=== PATIENT | male | born 1995 | race Caucasian/White ===

== ENCOUNTER 2019-06-09 18:50 | Observation (INO) | payer SELFPAY ==
[2019-06-09] MEDS: Sodium Chloride 0.9% 10 ML Syringe FLUSH PRN ×2 (19:00→21:00)
[2019-06-09] MEDS ORDERED: Sodium Chloride 0.9% 1,000 ML IV ONE (19:03)
[2019-06-09] MEDS ORDERED: Ondansetron 4 MG/2 ML SDV IVPUSH ONE ×2 (19:03→21:15)
--- NOTE | 2019-06-09 19:26 | EDM.PDOC ---
ED HPI GENERAL MEDICAL PROBLEM - General Chief Complaint: Drug or Alcohol Abuse Stated Complaint: VOMITTING Time Seen by Provider: 06/09/19 19:01 Source of Information: Reports: Patient, Family (Sister) History Limitations: Reports: No Limitations - History of Present Illness INITIAL COMMENTS - FREE TEXT/NARRATIVE: Patient is a 24-year-old gentleman who presents to the emergency department this evening with his sister for complaint of drug abuse and vomiting. Sister explained to me that the patient was staying with the father in [place] and she found him intoxicated and not cared for. Sister also noticed that the patient had a large wound on his right lower extremity. She became concerned and decided to bring the patient to [facility] for evaluation. Sister states that she contacted [facility] and they have an appointment there on Monday for evaluation. Patient admits to marijuana, cocaine, and heroin use. Patient also has a history of epilepsy and is currently on Depakote. Patient denies chest pain, shortness of breath, headache, fever, abdominal pain, bowel changes, blood in stool or vomitus. Onset: Unknown/Unsure Duration: Chronic Severity: Moderate Improves with: Reports: None Worsens with: Reports: None Associated Symptoms: Reports: Nausea/Vomiting. Denies: Chest Pain, Fever/Chills , Shortness of Breath - Related Data Allergies Allergy/AdvReac Type Severity Reaction Status Date / Time No Known Drug Allergies Allergy Cannot Verified 06/09/19 19:07 Remember Home Meds: Home Meds Divalproex Sodium [Depakote] 250 mg PO DAILY 06/09/19 [History] Divalproex Sodium [Depakote] 500 mg PO BEDTIME 06/09/19 [History] ED ROS GENERAL - Review of Systems Review Of Systems: Comprehensive ROS is negative, except as noted in HPI. Constitutional: Reports: No Symptoms HEENT: Reports: No Symptoms Respiratory: Reports: No Symptoms Cardiovascular: Reports: No Symptoms Endocrine: Reports: No Symptoms GI/Abdominal: Reports: Nausea, Vomiting. Denies: Abdominal Pain : Reports: No Symptoms Musculoskeletal: Reports: No Symptoms Skin: Reports: No Symptoms Neurological: Reports: No Symptoms Psychiatric: Denies: Homicidal Ideation, Suicidal Ideation Hematologic/Lymphatic: Reports: No Symptoms Immunologic: Reports: No Symptoms ED EXAM, GENERAL - Physical Exam Exam: See Below Exam Limited By: No Limitations General Appearance: Alert, WD/WN, No Apparent Distress Eye Exam: Bilateral Eye: Normal Inspection Nose: Normal Inspection, Normal Mucosa, No Blood Throat/Mouth: Normal Inspection, Normal Oropharynx, No Airway Compromise Head: Atraumatic, Normocephalic Neck: Normal Inspection, Supple, Non-Tender, Full Range of Motion Respiratory/Chest: No Respiratory Distress, Lungs Clear, Normal Breath Sounds, No Accessory Muscle Use, Chest Non-Tender Cardiovascular: No Murmur, Tachycardia GI/Abdominal: Normal Bowel Sounds, Soft, Non-Tender, No Organomegaly, No Distention, No Abnormal Bruit, No Mass, Pelvis Stable Back Exam: Normal Inspection, Full Range of Motion. No: CVA Tenderness (L), CVA Tenderness (R) Extremities: Normal Range of Motion, Non-Tender, No Pedal Edema, Redness, Other (There is a 9" linear x 1" wide laceration to midline right tib-fib. There is half centimeter border, erythema around wound and no proximal lymphadenopathy streaking,) Neurological: Alert, Oriented, CN II-XII Intact, No Motor/Sensory Deficits Psychiatric: Normal Affect, Normal Mood Skin Exam: Warm, Dry, Intact, Normal Color, No Rash Lymphatic: No Adenopathy Course - Vital Signs Last Recorded V/S: Last Vital Signs Temp 97.9 F 06/09/19 19:00 Pulse 88 06/09/19 19:53 Resp 28 H 06/09/19 19:53 BP 139/95 H 06/09/19 19:53 Pulse Ox 97 06/09/19 19:53 - Orders/Labs/Meds Orders: Active Orders 24 hr Category Date Time Status Patient Status [ADT] Routine ADT 06/09/19 21:12 Ordered Oxygen Therapy [RC] PRN Care 06/09/19 21:12 Ordered Peripheral IV Care [RC] . DIRECTED Care 06/09/19 19:03 Active Up to Chair [RC] ASDIRECTED Care 06/09/19 21:12 Ordered VTE/DVT Education [RC] PER UNIT ROUTINE Care 06/09/19 21:12 Ordered Vaccines to be Administered [RC] PER UNIT ROUTINE Care 06/09/19 20:47 Ordered Vital Signs [RC] Q4H Care 06/09/19 21:12 Ordered Regular Diet [DIET] Diet 06/09/19 Breakfast Ordered BASIC METABOLIC PANEL,BMP [CHEM] Routine Lab 06/10/19 07:00 Ordered CBC WITH AUTO DIFF [HEME] Routine Lab 06/10/19 07:00 Ordered CULTURE BLOOD [BC] Stat Lab 06/09/19 19:46 Ordered CULTURE BLOOD [BC] Stat Lab 06/09/19 19:46 Ordered CULTURE WOUND [RM] Stat Lab 06/09/19 19:49 Ordered LACTIC ACID [CHEM] Routine Lab 06/10/19 07:00 Ordered VALPROIC ACID [REF] Stat Lab 06/09/19 19:27 Ordered Acetaminophen [Tylenol] Med 06/09/19 21:12 Ordered 650 mg PO Q4H PRN Ondansetron [Zofran ODT] Med 06/09/19 21:12 Ordered 4 mg PO Q4H PRN Potassium Bicarbonate [Klor-Con EF] Med 06/09/19 21:15 Ordered 25 meq PO DAILY Sodium Chloride 0.9% @ 125 MLS/HR (1000ml) Med 06/09/19 21:15 Ordered Sodium Chloride 0.9% [Normal Saline] 1,000 ml IV ASDIRECTED Sodium Chloride 0.9% [Saline Flush] Med 06/09/19 19:03 Ordered 10 ml FLUSH Q8HR PRN Blood Culture x2 Reflex Set [OM.PC] Stat Oth 06/09/19 19:46 Ordered Peripheral IV Insertion Adult [OM.PC] Routine Oth 06/09/19 19:03 Ordered Resuscitation Status Routine Resus Stat 06/09/19 21:12 Ordered Medication Orders Acetaminophen (Tylenol) 650 mg PO Q4H PRN PRN Reason: Pain (Mild 1-3)/fever Sodium Chloride (Normal Saline) 1,000 mls @ 125 mls/hr IV ASDIRECTED CONNER Ondansetron HCl (Zofran Odt) 4 mg PO Q4H PRN PRN Reason: nausea, able to take PO Potassium Bicarbonate (Klor-Con Ef) 25 meq PO DAILY CONNER Sodium Chloride (Saline Flush) 10 ml FLUSH Q8HR PRN PRN Reason: keep vein open Labs: Laboratory Tests 06/09/19 06/09/19 06/09/19 Range/Units 19:00 19:00 19:03 WBC 23.14 H (5.00-10.00) 10^3/uL RBC 6.24 H (4.50-6.00) 10^6/uL Hgb 18.7 H (13.0-17.0) g/dL Hct 52.5 H (40.0-52.0) % MCV 84.1 (82.0-92.0) fL MCH 30.0 (27.0-31.0) pg MCHC 35.6 (32.0-36.0) g/dL RDW 14.5 (11.5-14.5) % Plt Count 406 H (150-400) 10^3/uL MPV 10.1 (7.4-10.4) fL Immature Gran % (Auto) 0.3 (0.0-5.0) % Neut % (Auto) 71.0 H (50.0-70.0) % Lymph % (Auto) 13.7 L (20.0-40.0) % [place] % (Auto) 14.9 H (2.0-8.0) % Eos % (Auto) 0.0 L (1.0-3.0) % Baso % (Auto) 0.1 (0.0-1.0) % Immature Gran # (Auto) 0.06 (0.00-0.50) 10^3/uL Neut # (Auto) 16.43 H (2.50-7.00) 10^3/uL Lymph # (Auto) 3.17 (1.00-4.00) 10^3/uL [place] # (Auto) 3.45 H (0.10-0.80) 10^3/uL Eos # (Auto) 0.01 L (0.10-0.30) 10^3/uL Baso # (Auto) 0.02 (0.00-0.10) 10^3/uL Sodium 142 (136-145) mmol/L Potassium 3.1 L (3.3-5.3) mmol/L Chloride 94 L (98-115) mmol/L Carbon Dioxide 30.3 (21.0-32.0) mmol/L Anion Gap 20.8 H (5-15) mmol/L BUN 50 H (6-25) mg/dL Creatinine 1.27 H (0.51-1.17) mg/dL Est Cr Clr Drug Dosing 85.57 mL/min Estimated GFR (MDRD) > 60 mL/min Glucose 157 H (75 - 99) mg/dL Lactic Acid (0.4-2.0) mmol/L Calcium 9.9 (8.7-10.3) mg/dL Total Bilirubin 0.6 (0.2-1.0) mg/dL AST 8 L (15-37) U/L ALT 16 (12-78) U/L Alkaline Phosphatase 68 (46-116) IU/L Total Protein 9.4 H (6.4-8.2) g/dL Albumin 4.72 (3.00-4.80) g/dL Specimen Type Urine Color (YELLOW) Urine Appearance (CLEAR) Urine pH (5.0-9.0) Ur Specific [place] (1.005-1.030) Urine Protein (NEGATIVE) mg/dL Urine Glucose (UA) (NEGATIVE) mg/dL Urine Ketones (NEGATIVE) mg/dL Urine Occult Blood (NEGATIVE) Urine Nitrite (NEGATIVE) Urine Bilirubin (NEGATIVE) Urine Urobilinogen (0.2-1.0) E.U./dL Ur Leukocyte Esterase (NEGATIVE) U Hyaline Cast (Auto) Urine RBC (0-5) /HPF Urine WBC (0-5) /HPF Ur Epithelial Cells /LPF Amorphous Sediment (0/HPF) /HPF Urine Bacteria (NONE TO FEW) /HPF Urine Mucus (NEGATIVE) /LPF Urine Opiates Screen Positive H (NEGATIVE) Ur Oxycodone Screen Negative (NEGATIVE) Urine Methadone Screen Negative (NEGATIVE) Ur Propoxyphene Screen Negative (NEGATIVE) Ur Barbiturates Screen Negative (NEGATIVE) Ur Tricyclics Screen Positive H (NEGATIVE) Ur Phencyclidine Scrn Negative (NEGATIVE) Ur Amphetamine Screen Negative (NEGATIVE) U Methamphetamines Scrn Positive H (NEGATIVE) U Benzodiazepines Scrn Negative (NEGATIVE) U Cocaine Metab Screen Negative (NEGATIVE) U Marijuana (THC) Screen Positive H (NEGATIVE) Ethyl Alcohol < 3 (NONE DETECTED) mg/dL 06/09/19 06/09/19 Range/Units 19:10 20:15 WBC (5.00-10.00) 10^3/uL RBC (4.50-6.00) 10^6/uL Hgb (13.0-17.0) g/dL Hct (40.0-52.0) % MCV (82.0-92.0) fL MCH (27.0-31.0) pg MCHC (32.0-36.0) g/dL RDW (11.5-14.5) % Plt Count (150-400) 10^3/uL MPV (7.4-10.4) fL Immature Gran % (Auto) (0.0-5.0) % Neut % (Auto) (50.0-70.0) % Lymph % (Auto) (20.0-40.0) % [place] % (Auto) (2.0-8.0) % Eos % (Auto) (1.0-3.0) % Baso % (Auto) (0.0-1.0) % Immature Gran # (Auto) (0.00-0.50) 10^3/uL Neut # (Auto) (2.50-7.00) 10^3/uL Lymph # (Auto) (1.00-4.00) 10^3/uL [place] # (Auto) (0.10-0.80) 10^3/uL Eos # (Auto) (0.10-0.30) 10^3/uL Baso # (Auto) (0.00-0.10) 10^3/uL Sodium (136-145) mmol/L Potassium (3.3-5.3) mmol/L Chloride (98-115) mmol/L Carbon Dioxide (21.0-32.0) mmol/L Anion Gap (5-15) mmol/L BUN (6-25) mg/dL Creatinine (0.51-1.17) mg/dL Est Cr Clr Drug Dosing mL/min Estimated GFR (MDRD) mL/min Glucose (75 - 99) mg/dL Lactic Acid 1.7 (0.4-2.0) mmol/L Calcium (8.7-10.3) mg/dL Total Bilirubin (0.2-1.0) mg/dL AST (15-37) U/L ALT (12-78) U/L Alkaline Phosphatase (46-116) IU/L Total Protein (6.4-8.2) g/dL Albumin (3.00-4.80) g/dL Specimen Type . Urine Color Yellow (YELLOW) Urine Appearance Slightly cloudy H (CLEAR) Urine pH 5.5 (5.0-9.0) Ur Specific [place] >= 1.030 (1.005-1.030) Urine Protein >=300 H (NEGATIVE) mg/dL Urine Glucose (UA) Negative (NEGATIVE) mg/dL Urine Ketones Negative (NEGATIVE) mg/dL Urine Occult Blood Trace-lysed H (NEGATIVE) Urine Nitrite Negative (NEGATIVE) Urine Bilirubin Small H (NEGATIVE) Urine Urobilinogen 0.2 (0.2-1.0) E.U./dL Ur Leukocyte Esterase Negative (NEGATIVE) U Hyaline Cast (Auto) Few Urine RBC 0-5 (0-5) /HPF Urine WBC 10-20 H (0-5) /HPF Ur Epithelial Cells Occasional /LPF Amorphous Sediment Few (0/HPF) /HPF Urine Bacteria Occasional (NONE TO FEW) /HPF Urine Mucus Moderate H (NEGATIVE) /LPF Urine Opiates Screen (NEGATIVE) Ur Oxycodone Screen (NEGATIVE) Urine Methadone Screen (NEGATIVE) Ur Propoxyphene Screen (NEGATIVE) Ur Barbiturates Screen (NEGATIVE) Ur Tricyclics Screen (NEGATIVE) Ur Phencyclidine Scrn (NEGATIVE) Ur Amphetamine Screen (NEGATIVE) U Methamphetamines Scrn (NEGATIVE) U Benzodiazepines Scrn (NEGATIVE) U Cocaine Metab Screen (NEGATIVE) U Marijuana (THC) Screen (NEGATIVE) Ethyl Alcohol (NONE DETECTED) mg/dL Meds: Medications Generic Name Dose Route Start Last Admin Trade Name Freq PRN Reason Stop Dose Admin Acetaminophen 650 mg 06/09/19 21:12 Tylenol PO Q4H PRN Pain (Mild 1-3)/fever Sodium Chloride 1,000 mls @ 125 mls/hr 06/09/19 21:15 Normal Saline IV ASDIRECTED CONNER Ondansetron HCl 4 mg 06/09/19 21:12 Zofran Odt PO Q4H PRN nausea, able to take PO Potassium Bicarbonate 25 meq 06/09/19 21:15 Klor-Con Ef PO DAILY CONNER Sodium Chloride 10 ml 06/09/19 19:03 Saline Flush FLUSH Q8HR PRN keep vein open Discontinued Medications Generic Name Dose Route Start Last Admin Trade Name Freq PRN Reason Stop Dose Admin Ceftriaxone Sodium Confirm 06/09/19 19:49 06/09/19 21:09 Rocephin Administered 06/09/19 19:50 1 gm Dose Administration 1 gm .ROUTE .STK-MED ONE Diphtheria/Tetanus/Acell Pertussis 0.5 ml 06/09/19 20:47 06/09/19 20:53 Adacel IM 06/09/19 20:48 0.5 ml .ONCE ONE Administration Sodium Chloride 1,000 mls @ 999 mls/hr 06/09/19 19:03 06/09/19 19:16 Normal Saline IV 06/09/19 20:03 999 mls/hr .BOLUS ONE Administration Ondansetron HCl 4 mg 06/09/19 19:03 06/09/19 19:17 Zofran IVPUSH 06/09/19 19:04 4 mg ONETIME ONE Administration Ondansetron HCl 4 mg 06/09/19 21:15 Zofran IVPUSH 06/09/19 21:16 ONETIME ONE - Re-Assessments/Exams Free Text/Narrative Re-Assessment/Exam: 06/09/19 21:06 Patient afebrile, vital signs stable, patient resting comfortably, sister at bedside. Discussed case with Dr. Ochoa. Patient will be admitted and followed. Departure - Departure Time of Disposition: 21:09 Disposition: Refer to Observation Condition: Fair Clinical Impression: Drug dependence, Acute renal insufficiency Cellulitis Qualifiers: Site of cellulitis: extremity Site of cellulitis of extremity: lower extremity Laterality: right Qualified Code(s): L03.115 - Cellulitis of right lower limb Leukocytosis Qualifiers: Leukocytosis type: unspecified Qualified Code(s): D72.829 - Elevated white blood cell count, unspecified - Discharge Information Referrals: Ronit Gray MD [Primary Care Provider] - Sepsis Event Note - Focused Exam Vital Signs: Vital Signs Temp Pulse Resp BP BP Pulse Ox 06/09/19 19:53 88 28 H 139/95 H 97 06/09/19 19:25 106 H 30 H 133/88 06/09/19 19:05 131 H 38 H 139/89 06/09/19 19:00 97.9 F 148 H 20 144/113 H 98 Date Exam was Performed: 06/09/19 Time Exam was Performed: 21:18 - My Orders Last 24 Hours: My Active Orders 06/09/19 19:03 Peripheral IV Care [RC] . DIRECTED Sodium Chloride 0.9% [Saline Flush] 10 ml FLUSH Q8HR PRN Peripheral IV Insertion Adult [OM.PC] Routine 06/09/19 19:27 VALPROIC ACID [REF] Stat 06/09/19 19:46 CULTURE BLOOD [BC] Stat CULTURE BLOOD [BC] Stat Blood Culture x2 Reflex Set [OM.PC] Stat 06/09/19 19:49 CULTURE WOUND [RM] Stat 06/09/19 20:47 Vaccines to be Administered [RC] PER UNIT ROUTINE 06/09/19 21:12 Patient Status [ADT] Routine Oxygen Therapy [RC] PRN Up to Chair [RC] ASDIRECTED VTE/DVT Education [RC] PER UNIT ROUTINE Vital Signs [RC] Q4H Acetaminophen [Tylenol] 650 mg PO Q4H PRN Ondansetron [Zofran ODT] 4 mg PO Q4H PRN Resuscitation Status Routine 06/09/19 21:15 Potassium Bicarbonate [Klor-Con EF] 25 meq PO DAILY Sodium Chloride 0.9% @ 125 MLS/HR (1000ml) Sodium Chloride 0.9% [Normal Saline] 1,000 ml IV ASDIRECTED 06/09/19 Breakfast Regular Diet [DIET] 06/10/19 07:00 BASIC METABOLIC PANEL,BMP [CHEM] Routine CBC WITH AUTO DIFF [HEME] Routine LACTIC ACID [CHEM] Routine - Assessment/Plan Admission H&P: Please use this note as an admission H&P Last 24 Hours: My Active Orders 06/09/19 19:03 Peripheral IV Care [RC] . DIRECTED Sodium Chloride 0.9% [Saline Flush] 10 ml FLUSH Q8HR PRN Peripheral IV Insertion Adult [OM.PC] Routine 06/09/19 19:27 VALPROIC ACID [REF] Stat 06/09/19 19:46 CULTURE BLOOD [BC] Stat CULTURE BLOOD [BC] Stat Blood Culture x2 Reflex Set [OM.PC] Stat 06/09/19 19:49 CULTURE WOUND [RM] Stat 06/09/19 20:47 Vaccines to be Administered [RC] PER UNIT ROUTINE 06/09/19 21:12 Patient Status [ADT] Routine Oxygen Therapy [RC] PRN Up to Chair [RC] ASDIRECTED VTE/DVT Education [RC] PER UNIT ROUTINE Vital Signs [RC] Q4H Acetaminophen [Tylenol] 650 mg PO Q4H PRN Ondansetron [Zofran ODT] 4 mg PO Q4H PRN Resuscitation Status Routine 06/09/19 21:15 Potassium Bicarbonate [Klor-Con EF] 25 meq PO DAILY Sodium Chloride 0.9% @ 125 MLS/HR (1000ml) Sodium Chloride 0.9% [Normal Saline] 1,000 ml IV ASDIRECTED 06/09/19 Breakfast Regular Diet [DIET] 06/10/19 07:00 BASIC METABOLIC PANEL,BMP [CHEM] Routine CBC WITH AUTO DIFF [HEME] Routine LACTIC ACID [CHEM] Routine Assessment:: Leukocytosis Plan: Admit for observation
--- NOTE | 2019-06-09 19:35 | CR ---
[id number] RAD/RAD Tibia Fibula Right EXAM: RAD Tibia Fibula Right INDICATION: TRAUMA COMPARISON: None. DISCUSSION: No fracture, dislocation or other osseous abnormality. IMPRESSION: 1. Negative exam. Randal Hudson MD 06/09/19 1934 Thank you for allowing us to participate in the care of your patient.
[2019-06-09 19:47] LABS: BARBITURATE SCREEN,URINE NEGATIVE (NEGATIVE); BENZODIAZEPINES SCREEN,URINE NEGATIVE (NEGATIVE)
[2019-06-09 19:48] LABS: TCA SCREEN,URINE POSITIVE (NEGATIVE); THC SCREEN,URINE 50 NG/ML POSITIVE (NEGATIVE)
[2019-06-09] MEDS ORDERED: cefTRIAXone 1 GM Vial IVPUSH ONE (19:50)
[2019-06-09 19:53] LABS: ANION GAP 20.8 mmol/L (5-15); CHLORIDE,CL 94 mmol/L (98-115); SODIUM,NA 142 mmol/L (136-145)
[2019-06-09] MEDS ORDERED: Diphtheria,Pertussis(Acell),Tetanus Vaccine 0.5 ML SDV IM ONE (20:47)
[2019-06-09] MEDS ORDERED: Divalproex Sodium Delayed-Release 250 MG Tab.CR PO SCH (21:00)
[2019-06-09] MEDS ORDERED: DIVALPROEX 500 MG PO SCH (21:00)
[2019-06-09] MEDS ORDERED: Patient's Own Medication 1 Each PO SCH ×2 (21:00)
[2019-06-09] MEDS: cefTRIAXone 1 GM Vial ONE (21:09)
[2019-06-09] MEDS ORDERED: Ondansetron 4 MG Tab.DIS PO PRN (21:12)
[2019-06-09] MEDS ORDERED: Sodium Chloride 0.9% 1,000 ML ONE (21:18)
[2019-06-09] MEDS: Sodium Chloride 0.9% 1,000 ML IV SCH (21:20)
[2019-06-09] MEDS: Acetaminophen 325 MG Tab PO PRN (22:37)
[2019-06-09] MEDS: Potassium Bicarbonate 25 MEQ Tab.EFF PO SCH (22:39)
[2019-06-10] MEDS: Acetaminophen 325 MG Tab PO PRN (05:17)
[2019-06-10] MEDS: Sodium Chloride 0.9% 1,000 ML IV SCH (05:19)
[2019-06-10 06:17] VITALS: BP 134/70; PULSE 67
[2019-06-10 06:35] LABS: ANION GAP 18.3 mmol/L (5-15); CHLORIDE,CL 101 mmol/L (98-115); SODIUM,NA 145 mmol/L (136-145)
[2019-06-10] MEDS: Potassium Bicarbonate 25 MEQ Tab.EFF PO SCH (08:28)
[2019-06-10] MEDS ORDERED: Divalproex Sodium Delayed-Release 250 MG Tab.CR PO SCH (09:00)
[2019-06-10] MEDS ORDERED: DIVALPROEX 500 MG PO SCH ×2 (09:00)
--- NOTE | 2019-06-10 10:18 | PCM.DCSUM1 ---
Discharge Summary - Hospital Course Free Text/Narrative:: Admission Date: 06/09/2019 Discharge Date: 06/10/2019 Admission Diagnoses: Opiate withdrawal Polysubstance abuse Leukocytosis Seizure Disorder Leg wound Acute renal insufficiency Discharge Diagnoses: Opiate withdrawal Polysubstance abuse Leukocytosis, improving Seizure Disorder Leg wound, will treat with Keflex, tetanus updated. Acute renal insufficiency, improving. Disposition: Home with family New meds at discharge: Ondansetron ODT 4 mg tabs Keflex 500 mg PO qid x 10 days Immodium OTC CODE STATUS: Full Code Merritt is a 24 yo male who was brought into the ER for hx of polysubstance abuse and acute withdrawal symptoms. His drug of choice is heroin and he prefers to smoke it rather than inject it. He has not used substances in the past 4 days, yesterday was the worst day of withdrawal symptoms with vomiting and diarrhea and shaking. He was noted to have a large RLE leg wound, laceration, that occurred approximately 4 days prior to admission when he states he had a seizure and he thinks that he lacerated the leg on a heater. He did not seek medical attention. The wound now will need to heal by secondary intention. His TDaP was updated in the ER on 06/08 and he was given rocephin. He was admitted largely due to an elevated WBC and mild renal insufficiency, WBC was 23 ,000, today is 16,000 with no left shift. His BUN/Cr were 50/1.27 and today are 32/0.99 after receiving IVF's. He states he is feeling better today and that yesterday was his worst day. He is ready to go home with his sister who resides here in [place]. He has an appointment on 06/10 for an assessment at [facility] for possible inpatient treatment. He has a hx of seizure disorder and takes Depakote 500 mg AM and 1,000 mg PM. He will need this renewed and this will be sent to the pharmacy. His sister, Tomeka, is present today. Merritt has gone through withdrawal before and knows what to expect symptomatically. Will try to control the symptoms as best as able with Zofran for nausea and immodium for the diarrhea. He states he feels better today and thinks he is through the worst of it. Keep intake appointment with [facility] tomorrow (06/10). Diagnosis: Stroke: No Modified Norman Scale: No Signif.Disability Despite Sympt.Able to Carry Out Usual Act./Duties Modified Norman Scale Score: 1 - Discharge Data Discharge Date: 06/10/19 Discharge Disposition: Home, Self-Care 01 Condition: Good - Referral to Home Health Primary Care Physician: Ronit Gray MD - Patient Instructions Diet: Regular Diet as Tolerated Wound/Incision Care: Keep Operative Site/Wound Site Clean and Dry Notify Provider of: Increased Pain, Swelling and Redness, Drainage - Discharge Plan *PRESCRIPTION DRUG MONITORING PROGRAM REVIEWED*: No *COPY OF PRESCRIPTION DRUG MONITORING REPORT IN PATIENT ANDRESSA: No Prescriptions/Med Rec: Divalproex Sodium 500 mg PO DAILY #30 tablet. Divalproex Sodium 1,000 mg PO BEDTIME #60 tablet. Ondansetron [Zofran ODT] 4 mg PO Q4H PRN #30 tab.dis PRN Reason: nausea, able to take PO Home Medications: Home Meds Divalproex Sodium 1,000 mg PO BEDTIME #60 tablet. 06/10/19 [Rx] Divalproex Sodium 500 mg PO DAILY #30 tablet. 06/10/19 [Rx] Ondansetron [Zofran ODT] 4 mg PO Q4H PRN #30 tab.dis 06/10/19 [Rx] Potassium Bicarbonate [Potassium Tablet Eff] 25 meq PO DAILY tab.eff 06/10/19 [ Rx] Referrals: Ronit Gray MD [Primary Care Provider] - - Discharge Summary/Plan Comment DC Time >30 min.: No - General Info Date of Service: 06/10/19 Admission Dx/Problem (Free Text: Opiate withdrawal. - Patient Data Vitals - Most Recent: Last Vital Signs Temp 98.8 F 06/10/19 06:17 Pulse 67 06/10/19 06:17 Resp 24 H 06/10/19 06:17 BP 134/70 06/10/19 06:17 Pulse Ox 98 06/10/19 06:17 Weight - Most Recent: 147 lb 11.2 oz I&O - Last 24 hours: Intake & Output 06/09/19 06/10/19 06/10/19 22:59 06:59 14:59 Intake Total 999 1220 Balance 999 1220 Lab Results - Last 24 hrs: Laboratory Results - last 24 hr 06/09/19 06/09/19 06/09/19 Range/Units 19:00 19:00 19:03 WBC 23.14 H (5.00-10.00) 10^3/uL RBC 6.24 H (4.50-6.00) 10^6/uL Hgb 18.7 H (13.0-17.0) g/dL Hct 52.5 H (40.0-52.0) % MCV 84.1 (82.0-92.0) fL MCH 30.0 (27.0-31.0) pg MCHC 35.6 (32.0-36.0) g/dL RDW 14.5 (11.5-14.5) % Plt Count 406 H (150-400) 10^3/uL MPV 10.1 (7.4-10.4) fL Immature Gran % (Auto) 0.3 (0.0-5.0) % Neut % (Auto) 71.0 H (50.0-70.0) % Lymph % (Auto) 13.7 L (20.0-40.0) % [place] % (Auto) 14.9 H (2.0-8.0) % Eos % (Auto) 0.0 L (1.0-3.0) % Baso % (Auto) 0.1 (0.0-1.0) % Immature Gran # (Auto) 0.06 (0.00-0.50) 10^3/uL Neut # (Auto) 16.43 H (2.50-7.00) 10^3/uL Lymph # (Auto) 3.17 (1.00-4.00) 10^3/uL [place] # (Auto) 3.45 H (0.10-0.80) 10^3/uL Eos # (Auto) 0.01 L (0.10-0.30) 10^3/uL Baso # (Auto) 0.02 (0.00-0.10) 10^3/uL Sodium 142 (136-145) mmol/L Potassium 3.1 L (3.3-5.3) mmol/L Chloride 94 L (98-115) mmol/L Carbon Dioxide 30.3 (21.0-32.0) mmol/L Anion Gap 20.8 H (5-15) mmol/L BUN 50 H (6-25) mg/dL Creatinine 1.27 H (0.51-1.17) mg/dL Est Cr Clr Drug Dosing 85.57 mL/min Estimated GFR (MDRD) > 60 mL/min Glucose 157 H (75 - 99) mg/dL Lactic Acid (0.4-2.0) mmol/L Calcium 9.9 (8.7-10.3) mg/dL Total Bilirubin 0.6 (0.2-1.0) mg/dL AST 8 L (15-37) U/L ALT 16 (12-78) U/L Alkaline Phosphatase 68 (46-116) IU/L Total Protein 9.4 H (6.4-8.2) g/dL Albumin 4.72 (3.00-4.80) g/dL Specimen Type Urine Color (YELLOW) Urine Appearance (CLEAR) Urine pH (5.0-9.0) Ur Specific [place] (1.005-1.030) Urine Protein (NEGATIVE) mg/dL Urine Glucose (UA) (NEGATIVE) mg/dL Urine Ketones (NEGATIVE) mg/dL Urine Occult Blood (NEGATIVE) Urine Nitrite (NEGATIVE) Urine Bilirubin (NEGATIVE) Urine Urobilinogen (0.2-1.0) E.U./dL Ur Leukocyte Esterase (NEGATIVE) U Hyaline Cast (Auto) Urine RBC (0-5) /HPF Urine WBC (0-5) /HPF Ur Epithelial Cells /LPF Amorphous Sediment (0/HPF) /HPF Urine Bacteria (NONE TO FEW) /HPF Urine Mucus (NEGATIVE) /LPF Urine Opiates Screen Positive H (NEGATIVE) Ur Oxycodone Screen Negative (NEGATIVE) Urine Methadone Screen Negative (NEGATIVE) Ur Propoxyphene Screen Negative (NEGATIVE) Ur Barbiturates Screen Negative (NEGATIVE) Ur Tricyclics Screen Positive H (NEGATIVE) Ur Phencyclidine Scrn Negative (NEGATIVE) Ur Amphetamine Screen Negative (NEGATIVE) U Methamphetamines Scrn Positive H (NEGATIVE) U Benzodiazepines Scrn Negative (NEGATIVE) U Cocaine Metab Screen Negative (NEGATIVE) U Marijuana (THC) Screen Positive H (NEGATIVE) Ethyl Alcohol < 3 (NONE DETECTED) mg/dL 06/09/19 06/09/19 06/10/19 Range/Units 19:10 20:15 05:00 WBC 16.45 H (5.00-10.00) 10^3/uL RBC 5.65 (4.50-6.00) 10^6/uL Hgb 16.6 D (13.0-17.0) g/dL Hct 48.4 (40.0-52.0) % MCV 85.7 (82.0-92.0) fL MCH 29.4 (27.0-31.0) pg MCHC 34.3 (32.0-36.0) g/dL RDW 14.4 (11.5-14.5) % Plt Count 280 D (150-400) 10^3/uL MPV 10.4 (7.4-10.4) fL Immature Gran % (Auto) 0.2 (0.0-5.0) % Neut % (Auto) 65.8 (50.0-70.0) % Lymph % (Auto) 20.5 (20.0-40.0) % [place] % (Auto) 13.3 H (2.0-8.0) % Eos % (Auto) 0.1 L (1.0-3.0) % Baso % (Auto) 0.1 (0.0-1.0) % Immature Gran # (Auto) 0.04 (0.00-0.50) 10^3/uL Neut # (Auto) 10.82 H (2.50-7.00) 10^3/uL Lymph # (Auto) 3.37 (1.00-4.00) 10^3/uL [place] # (Auto) 2.19 H (0.10-0.80) 10^3/uL Eos # (Auto) 0.01 L (0.10-0.30) 10^3/uL Baso # (Auto) 0.02 (0.00-0.10) 10^3/uL Sodium (136-145) mmol/L Potassium (3.3-5.3) mmol/L Chloride (98-115) mmol/L Carbon Dioxide (21.0-32.0) mmol/L Anion Gap (5-15) mmol/L BUN (6-25) mg/dL Creatinine (0.51-1.17) mg/dL Est Cr Clr Drug Dosing mL/min Estimated GFR (MDRD) mL/min Glucose (75 - 99) mg/dL Lactic Acid 1.7 (0.4-2.0) mmol/L Calcium (8.7-10.3) mg/dL Total Bilirubin (0.2-1.0) mg/dL AST (15-37) U/L ALT (12-78) U/L Alkaline Phosphatase (46-116) IU/L Total Protein (6.4-8.2) g/dL Albumin (3.00-4.80) g/dL Specimen Type . Urine Color Yellow (YELLOW) Urine Appearance Slightly cloudy H (CLEAR) Urine pH 5.5 (5.0-9.0) Ur Specific [place] >= 1.030 (1.005-1.030) Urine Protein >=300 H (NEGATIVE) mg/dL Urine Glucose (UA) Negative (NEGATIVE) mg/dL Urine Ketones Negative (NEGATIVE) mg/dL Urine Occult Blood Trace-lysed H (NEGATIVE) Urine Nitrite Negative (NEGATIVE) Urine Bilirubin Small H (NEGATIVE) Urine Urobilinogen 0.2 (0.2-1.0) E.U./dL Ur Leukocyte Esterase Negative (NEGATIVE) U Hyaline Cast (Auto) Few Urine RBC 0-5 (0-5) /HPF Urine WBC 10-20 H (0-5) /HPF Ur Epithelial Cells Occasional /LPF Amorphous Sediment Few (0/HPF) /HPF Urine Bacteria Occasional (NONE TO FEW) /HPF Urine Mucus Moderate H (NEGATIVE) /LPF Urine Opiates Screen (NEGATIVE) Ur Oxycodone Screen (NEGATIVE) Urine Methadone Screen (NEGATIVE) Ur Propoxyphene Screen (NEGATIVE) Ur Barbiturates Screen (NEGATIVE) Ur Tricyclics Screen (NEGATIVE) Ur Phencyclidine Scrn (NEGATIVE) Ur Amphetamine Screen (NEGATIVE) U Methamphetamines Scrn (NEGATIVE) U Benzodiazepines Scrn (NEGATIVE) U Cocaine Metab Screen (NEGATIVE) U Marijuana (THC) Screen (NEGATIVE) Ethyl Alcohol (NONE DETECTED) mg/dL 06/10/19 06/10/19 Range/Units 05:00 05:00 WBC (5.00-10.00) 10^3/uL RBC (4.50-6.00) 10^6/uL Hgb (13.0-17.0) g/dL Hct (40.0-52.0) % MCV (82.0-92.0) fL MCH (27.0-31.0) pg MCHC (32.0-36.0) g/dL RDW (11.5-14.5) % Plt Count (150-400) 10^3/uL MPV (7.4-10.4) fL Immature Gran % (Auto) (0.0-5.0) % Neut % (Auto) (50.0-70.0) % Lymph % (Auto) (20.0-40.0) % [place] % (Auto) (2.0-8.0) % Eos % (Auto) (1.0-3.0) % Baso % (Auto) (0.0-1.0) % Immature Gran # (Auto) (0.00-0.50) 10^3/uL Neut # (Auto) (2.50-7.00) 10^3/uL Lymph # (Auto) (1.00-4.00) 10^3/uL [place] # (Auto) (0.10-0.80) 10^3/uL Eos # (Auto) (0.10-0.30) 10^3/uL Baso # (Auto) (0.00-0.10) 10^3/uL Sodium 145 (136-145) mmol/L Potassium 3.2 L (3.3-5.3) mmol/L Chloride 101 (98-115) mmol/L Carbon Dioxide 28.9 (21.0-32.0) mmol/L Anion Gap 18.3 H (5-15) mmol/L BUN 32 H (6-25) mg/dL Creatinine 0.99 (0.51-1.17) mg/dL Est Cr Clr Drug Dosing 108.09 mL/min Estimated GFR (MDRD) > 60 mL/min Glucose 124 H (75 - 99) mg/dL Lactic Acid 1.9 (0.4-2.0) mmol/L Calcium 9.0 (8.7-10.3) mg/dL Total Bilirubin (0.2-1.0) mg/dL AST (15-37) U/L ALT (12-78) U/L Alkaline Phosphatase (46-116) IU/L Total Protein (6.4-8.2) g/dL Albumin (3.00-4.80) g/dL Specimen Type Urine Color (YELLOW) Urine Appearance (CLEAR) Urine pH (5.0-9.0) Ur Specific [place] (1.005-1.030) Urine Protein (NEGATIVE) mg/dL Urine Glucose (UA) (NEGATIVE) mg/dL Urine Ketones (NEGATIVE) mg/dL Urine Occult Blood (NEGATIVE) Urine Nitrite (NEGATIVE) Urine Bilirubin (NEGATIVE) Urine Urobilinogen (0.2-1.0) E.U./dL Ur Leukocyte Esterase (NEGATIVE) U Hyaline Cast (Auto) Urine RBC (0-5) /HPF Urine WBC (0-5) /HPF Ur Epithelial Cells /LPF Amorphous Sediment (0/HPF) /HPF Urine Bacteria (NONE TO FEW) /HPF Urine Mucus (NEGATIVE) /LPF Urine Opiates Screen (NEGATIVE) Ur Oxycodone Screen (NEGATIVE) Urine Methadone Screen (NEGATIVE) Ur Propoxyphene Screen (NEGATIVE) Ur Barbiturates Screen (NEGATIVE) Ur Tricyclics Screen (NEGATIVE) Ur Phencyclidine Scrn (NEGATIVE) Ur Amphetamine Screen (NEGATIVE) U Methamphetamines Scrn (NEGATIVE) U Benzodiazepines Scrn (NEGATIVE) U Cocaine Metab Screen (NEGATIVE) U Marijuana (THC) Screen (NEGATIVE) Ethyl Alcohol (NONE DETECTED) mg/dL Med Orders - Current: Current Medications Acetaminophen (Tylenol) 650 mg PO Q4H PRN PRN Reason: Pain (Mild 1-3)/fever Last Admin: 06/10/19 05:17 Dose: 650 mg Sodium Chloride (Normal Saline) 1,000 mls @ 125 mls/hr IV ASDIRECTED [facility] Last Admin: 06/10/19 05:19 Dose: 125 mls/hr Ondansetron HCl (Zofran Odt) 4 mg PO Q4H PRN PRN Reason: nausea, able to take PO Patient's Own Medication Divalproex [address] Tab 1 each PO 0900 [facility] Last Admin: 06/10/19 08:28 Dose: 1 each Patient's Own Medication Divalproex [address] Tab 2 each PO 2100 [facility] Last Admin: 06/09/19 22:46 Dose: 2 each Potassium Bicarbonate (Klor-Con Ef) 25 meq PO DAILY [facility] Last Admin: 06/10/19 08:28 Dose: 25 meq Sodium Chloride (Saline Flush) 10 ml FLUSH Q8HR PRN PRN Reason: keep vein open Last Admin: 06/09/19 21:00 Dose: 10 ml Discontinued Medications Ceftriaxone Sodium (Rocephin) Confirm Administered Dose 1 gm .ROUTE .STK-MED ONE Stop: 06/09/19 19:50 Last Admin: 06/09/19 21:09 Dose: 1 gm Diphtheria/Tetanus/Acell Pertussis (Adacel) 0.5 ml IM .ONCE ONE Stop: 06/09/19 20:48 Last Admin: 06/09/19 20:53 Dose: 0.5 ml Divalproex Sodium (Divalproex Sodium) 500 mg PO 0900 [facility] Sodium Chloride (Normal Saline) 1,000 mls @ 999 mls/hr IV .BOLUS ONE Stop: 06/09/19 20:03 Last Admin: 06/09/19 19:16 Dose: 999 mls/hr Sodium Chloride (Normal Saline) Confirm Administered Dose 1,000 mls @ as directed .ROUTE .STK-MED ONE Stop: 06/09/19 21:19 Last Admin: 06/09/19 23:40 Dose: Not Given Ondansetron HCl (Zofran) 4 mg IVPUSH ONETIME ONE Stop: 06/09/19 19:04 Last Admin: 06/09/19 19:17 Dose: 4 mg Ondansetron HCl (Zofran) 4 mg IVPUSH ONETIME ONE Stop: 06/09/19 21:16 Last Admin: 06/09/19 21:57 Dose: 4 mg Patient's Own Medication Divalproex [address] Tab 1 each PO 0900 [facility] - Exam General: Reports: Alert, Oriented, Cooperative, No Acute Distress Lungs: Reports: Clear to Auscultation, Normal Respiratory Effort Cardiovascular: Reports: Regular Rate, Regular Rhythm, No Murmurs GI/Abdominal Exam: Normal Bowel Sounds Skin: Reports: Other (He has a 9 cm linear incision on his right lower anterior leg. No drainage. There is some granulation tissue present. Mildly erythematous borders.)
[2019-06-10] MEDS: cefTRIAXone 1 GM Vial ONE (11:49)
== END 2019-06-10 11:25 | disposition home or self-care (01) ==
LOC: KA.ED 18:50 → KA.MS 21:12
PROVIDERS: ADMIT Physician Assistant Surgical; ATTEND Internal Medicine
DX: F11.23 Opioid dependence with withdrawal (principal); F14.10 Cocaine abuse, uncomplicated; F12.10 Cannabis abuse, uncomplicated; G40.909 Epilepsy, unspecified, not intractable, without status epilepticus; N28.9 Disorder of kidney and ureter, unspecified; S81.811A Laceration without foreign body, right lower leg, initial encounter; L03.115 Cellulitis of right lower limb; Z23 Encounter for immunization; Z79.899 Other long term (current) drug therapy; X58.XXXA Exposure to other specified factors, initial encounter
CPT/HCPCS: 36415; 73590-RT; 80048; 80053; 80164; 80305-QW; 80307; 81001; 83605; 85025; 87040; 87070; 87077; 87186; 87205; 90471; 90715; 96361; 96374; 96375; 96376; 99285-25; A9270-GY; G0378; J0696; J2405; J7030